=== PATIENT | female | born 1995 | race Hispanic/Latino ===

== ENCOUNTER 2020-10-30 03:06 | Inpatient (IN) | payer BC, OTHER ==
[2020-10-30 03:39] VITALS: BMI 43.0
[2020-10-30] MEDS ORDERED: hydrALAZINE 20 MG/ML VIAL SLOW IVP PRN ×3 (03:50→17:35)
[2020-10-30] MEDS ORDERED: Promethazine HCl 25 MG/ML VIAL IM PRN ×3 (03:51→10:52)
[2020-10-30] MEDS ORDERED: Ondansetron PF 4 MG/2 ML Vial IVP PRN ×3 (04:02→17:35)
[2020-10-30] MEDS ORDERED: Lactated Ringer's 1,000 ML IV SCH (04:15)
[2020-10-30] MEDS ORDERED: Butorphanol Tartrate 1 MG/ML VIAL SLOW IVP SCH (04:30)
[2020-10-30 05:47] LABS: Hemoglobin 11.2 g/dL (12.0-15.5); Mean Corpuscular HGB CONC 33.7 g/dL (32.0-36.0); Mean Corpuscular Hemoglobin 28.7 pg (27.0-33.0); Mean Corpuscular Volume 85.1 fl (81.6-98.3); Platelet Count 257 10x3/uL (150-450); RBC Distribution Width 13.9 % (11.5-14.5); White Blood Cell (WBC) Count 9.8 10x3/uL (3.5-10.5)
[2020-10-30 06:09] LABS: Syphilis Antibody Nonreactive (Nonreactive); Syphilis Antibody Index 0.03 S/CO (<1.00 Non-Reactive)
[2020-10-30 06:10] LABS: Hep B Surf Ag Non-Reactive S/CO (NonReactive)
[2020-10-30 06:25] LABS: HBSAg Index 0.18 S/CO (0-0.99)
[2020-10-30] MEDS ORDERED: Butorphanol Tartrate 1 MG/ML VIAL ONE (07:51)
[2020-10-30] MEDS ORDERED: Lidocaine 1% (PF) 30 ML VIAL SC PRN (07:58)
[2020-10-30] MEDS ORDERED: Misoprostol 200 MCG TAB PR PRN (07:58)
[2020-10-30] MEDS ORDERED: HYDROcodone/Acetaminophen 5/325 mg Tablet PO PRN ×4 (07:58→17:35)
[2020-10-30] MEDS ORDERED: Diphenoxylate HCl/Atropine Tablet PO PRN ×2 (07:58)
[2020-10-30] MEDS ORDERED: Ibuprofen 800 MG TAB PO PRN (07:58)
[2020-10-30] MEDS ORDERED: Penicillin G Potassium 5 MILL.UNITS in Sodium Chloride 0.9% 100 ML IVPB SCH (08:00)
[2020-10-30] MEDS ORDERED: Fentanyl 4 mcg/Bup 0.1% Cadd 100 ML ONE ×2 (08:11→14:43)
[2020-10-30] MEDS ORDERED: NS w/ Oxytocin 30 units 500 ML ONE (08:14)
[2020-10-30] MEDS ORDERED: NS w/ Oxytocin 30 units 500 ML IVPB PRN (08:31)
[2020-10-30] MEDS ORDERED: Sodium Chloride 0.9% 100 ML ONE (08:33)
[2020-10-30] MEDS ORDERED: Penicillin G Potassium 5 MILL.UNITS VIAL ONE (08:33)
[2020-10-30] MEDS ORDERED: ePHEDrine 50 MG/ML VIAL SLOW IVP PRN (10:52)
[2020-10-30] MEDS ORDERED: Naloxone HCl 0.4 mg/ml Vial IVP PRN ×2 (10:52)
[2020-10-30] MEDS ORDERED: diphenhydrAMINE 50 MG/ML VIAL IVP PRN (10:52)
[2020-10-30] MEDS ORDERED: Eucerin (Mineral Oil/Petrolatum,White) 30 gm Jar TOP PRN (10:52)
[2020-10-30] MEDS ORDERED: Lactated Ringer's 500 ML IV PRN (10:52)
[2020-10-30] MEDS ORDERED: Acetaminophen 325 MG TAB PO PRN ×2 (10:52→17:39)
[2020-10-30] MEDS ORDERED: Communication Order-Pharmacy FS SCH (11:00)
[2020-10-30] MEDS ORDERED: Fentanyl 4 mcg/Bupivacaine 0.1% Cassette 100 ML EPIDURAL SCH (11:00)
[2020-10-30] MEDS: Penicillin G 2.5 MILL.units 2.5 MILL.UNITS in Premix Bag 1 BAG IVPB SCH ×2 (12:27→16:26)
[2020-10-30] MEDS ORDERED: Misoprostol 200 MCG TAB VAG PRN (17:35)
[2020-10-30] MEDS ORDERED: Milk Of Magnesia 30 ML UDCUP PO PRN (17:35)
[2020-10-30] MEDS ORDERED: Benzocaine-Menthol 82.5 ML CAN TOP PRN (17:35)
[2020-10-30] MEDS ORDERED: Adacel (T-DAP) 0.5 ML SYRINGE IM ONE (17:35)
[2020-10-30] MEDS ORDERED: Zolpidem Tartrate 5 MG TAB PO PRN (17:35)
[2020-10-30] MEDS ORDERED: Lanolin Ointment 7 GM TUBE TOP PRN (17:35)
[2020-10-30] MEDS ORDERED: Bisacodyl 10 MG SUPP PR PRN (17:35)
[2020-10-30] MEDS ORDERED: Preparation H Ointment 28 GM TUBE PR PRN (17:35)
[2020-10-30] MEDS ORDERED: NS w/ Oxytocin 30 units 500 ML IVPB SCH (18:00)
[2020-10-30] MEDS: Docusate Calcium (SURFAK) 240 MG CAP PO SCH (21:17)
[2020-10-30] MEDS: Ibuprofen 800 MG TAB PO SCH (21:17)
[2020-10-31 01:21] LABS: SARS-CoV-2 PCR by NAA Not Detected (NotDetected)
[2020-10-31] MEDS: Ibuprofen 800 MG TAB PO SCH ×3 (05:15→20:34)
[2020-10-31 06:25] LABS: Hemoglobin 10.4 g/dL (12.0-15.5); Mean Corpuscular HGB CONC 33.8 g/dL (32.0-36.0); Mean Corpuscular Hemoglobin 28.8 pg (27.0-33.0); Mean Corpuscular Volume 85.3 fl (81.6-98.3); Mean Platelet Volume 10.6 fl (7.4-10.4); Platelet Count 207 10x3/uL (150-450); RBC Distribution Width 13.9 % (11.5-14.5); Red Blood Cell (RBC) Count 3.61 10x6/uL (3.90-5.03); White Blood Cell (WBC) Count 10.8 10x3/uL (3.5-10.5)
[2020-10-31] MEDS: Ferrous Sulfate 325 MG TAB PO SCH ×2 (07:35→16:12)
[2020-10-31] MEDS: Prenatal Vitamin 1 TAB PO SCH (09:16)
[2020-10-31] MEDS: Docusate Calcium (SURFAK) 240 MG CAP PO SCH ×2 (09:16→20:34)
[2020-11-01] MEDS: Ibuprofen 800 MG TAB PO SCH (05:53)
[2020-11-01] MEDS ORDERED: Simethicone Chewable 80 MG TAB PO PRN (06:05)
[2020-11-01 07:41] VITALS: BP 99/56; TEMP 98
[2020-11-01] MEDS: Ferrous Sulfate 325 MG TAB PO SCH (07:46)
[2020-11-01] MEDS: Prenatal Vitamin 1 TAB PO SCH (09:46)
[2020-11-01] MEDS: Docusate Calcium (SURFAK) 240 MG CAP PO SCH (09:46)
== END 2020-11-01 11:40 | disposition home or self-care (01) | DRG 806 ==
LOC: CSHLD/OP 03:06 → CSHLD 17:35 → CSHPED 19:32
PROVIDERS: ADMIT Obstetrics & Gynecology; ATTEND Obstetrics & Gynecology
PROC: 10E0XZZ Delivery of Products of Conception, External Approach (ICD-10-PCS; principal; 2020-11-01)
DX: O99.824 Streptococcus B carrier state complicating childbirth (principal); D62 Acute posthemorrhagic anemia; Z37.0 Single live birth; Z3A.38 38 weeks gestation of pregnancy; Z20.822 Contact with and (suspected) exposure to COVID-19; O90.81 Anemia of the puerperium
CPT/HCPCS: 36415; 51702; 85027; 86780; 86850; 86900; 86901; 87340; 87635; 99285; J0595; J2001; J2540; J2550; J2590; J3490; U0003; U0005